=== PATIENT | male | born 1970 ===

== ENCOUNTER 2017-11-22 13:13 | Emergency (ER) | payer BC ==
[~2017-11-22] VITALS: Ht 175.3 cm; Wt 99.5 kg
[2017-11-22] MEDS ORDERED: SODIUM CHLORIDE 0.9% 1000ML 1,000 ML IV SCH (14:15)
[2017-11-22] MEDS ORDERED: DICYCLOMINE HCL 20 MG TAB PO ONE (16:15)
[2017-11-22 18:40] VITALS: BP 132/88
== END 2017-11-22 17:30 | disposition home or self-care (01) ==
LOC: FSED 13:13
DX: R10.13 Epigastric pain (principal); R73.9 Hyperglycemia, unspecified; F15.19 Other stimulant abuse with unspecified stimulant-induced disorder; F14.19 Cocaine abuse with unspecified cocaine-induced disorder; F17.200 Nicotine dependence, unspecified, uncomplicated; R03.0 Elevated blood-pressure reading, without diagnosis of hypertension; R74.0 Nonspecific elevation of levels of transaminase and lactic acid dehydrogenase [LDH]
CPT/HCPCS: 74177; 80053; 85025; 99284